=== PATIENT | male | born 1955 | race Caucasian/White ===

== ENCOUNTER 2016-02-21 12:25 | Day surgery (SDC) | payer OTHER ==
[2016-02-21 13:01] VITALS: RESP 20; TEMP 98.3
[2016-02-21 13:21] LABS: Mean Platelet Volume 7.5
[2016-02-21 13:22] LABS: INR 1.2 (<1.1); Prothrombin Time 12.3 sec (9.0-12.0)
[2016-02-21 13:24] LABS: Non-African American GFR(MDRD) >60 (>60 ml/min/1.73 sqM)
[2016-02-21] MEDS: ALBUMIN HUMAN 25% 50 ML in EMPTY BAG 1 BAG IVPB SCH ×3 (14:32→15:02)
[2016-02-21 16:05] VITALS: BP 116/68; PULSE 80
--- NOTE | 2016-02-21 16:39 | US ---
EXAMINATION TYPE: US paracentesis abd w/image DATE OF EXAM: 02/21/2016 4:16 PM COMPARISON: NONE HISTORY: Ascites. PROCEDURE: Maximal barrier technique was utilized. The skin overlying a suitable pocket of fluid was localized with ultrasound and the overlying skin was prepped and draped. Ultrasound was utilized with sterile technique. Lidocaine was used for local anesthesia and a skin soren made with a scalpel. Catheter was advanced under direct ultrasound guidance into a suitable pocket of fluid and approximately 10.8 lite rs of yellow fluid were removed. Catheter was withdrawn and hemostasis achieved. There is no immedi ate complication; the patient is discharged in stable condition. IMPRESSION: STATUS POST ULTRASOUND GUIDED PARACENTESIS FOR PALLIATION OF ASCITES. THIS PROCEDURE WA S PERFORMED BY THE UNDERSIGNED.
== END 2016-02-21 14:15 | disposition home or self-care (01) ==
LOC: RADPROMAIN 12:25
PROVIDERS: ATTEND Internal Medicine
DX: R18.8 Other ascites (principal); B18.2 Chronic viral hepatitis C; Z91.041 Radiographic dye allergy status; Z79.891 Long term (current) use of opiate analgesic; Z79.899 Other long term (current) drug therapy
CPT/HCPCS: 82565; 85049; 85610; 96365; 36415; 49083; P9047

== ENCOUNTER 2016-03-01 08:33 | Day surgery (SDC) | payer OTHER ==
[2016-03-01 09:01] LABS: Mean Platelet Volume 7.5
[2016-03-01 09:06] VITALS: TEMP 98.5
[2016-03-01 09:09] LABS: Non-African American GFR(MDRD) >60 (>60 ml/min/1.73 sqM)
[2016-03-01 09:27] LABS: INR 1.2 (<1.1); Prothrombin Time 11.9 sec (9.0-12.0)
[2016-03-01 10:03] VITALS: RESP 16
[2016-03-01] MEDS: ALBUMIN HUMAN 25% 50 ML in EMPTY BAG 1 BAG IVPB SCH ×4 (10:33→11:14)
[2016-03-01 11:21] VITALS: BP 121/74; PULSE 74
--- NOTE | 2016-03-01 13:20 | US ---
EXAMINATION TYPE: US paracentesis abd w/image DATE OF EXAM: 03/01/2016 12:42 PM COMPARISON: NONE HISTORY: Ascites. PROCEDURE: Maximal barrier technique was utilized. The skin overlying a suitable pocket of fluid was localized with ultrasound and the overlying skin was prepped and draped. Ultrasound was utilized with sterile technique. Lidocaine was used for local anesthesia and a skin soren made with a scalpel. Catheter was advanced under direct ultrasound guidance into a suitable pocket of fluid and approximately 9.8 liter s of straw-colored fluid were removed. Catheter was withdrawn and hemostasis achieved. There is no immediate complication; the patient is discharged in stable condition. IMPRESSION: STATUS POST ULTRASOUND GUIDED PARACENTESIS FOR PALLIATION OF ASCITES. THIS PROCEDURE WA S PERFORMED BY THE UNDERSIGNED.
== END 2016-03-01 11:50 | disposition home or self-care (01) ==
LOC: RADPROMAIN 08:33
DX: R18.8 Other ascites (principal)
CPT/HCPCS: 82565; 85049; 85610; 96365; 36415; 49083; P9047

== ENCOUNTER 2016-03-06 08:09 | Day surgery (SDC) | payer OTHER ==
[2016-03-06 08:31] VITALS: RESP 20; TEMP 97.8
[2016-03-06 08:36] LABS: Mean Platelet Volume 7.2
[2016-03-06 08:43] LABS: INR 1.1 (<1.1); Prothrombin Time 11.4 sec (9.0-12.0)
[2016-03-06 08:47] LABS: Non-African American GFR(MDRD) >60 (>60 ml/min/1.73 sqM)
[2016-03-06] MEDS: ALBUMIN HUMAN 25% 50 ML in EMPTY BAG 1 BAG IVPB SCH ×4 (10:22→11:13)
[2016-03-06 11:12] VITALS: BP 115/69; PULSE 70
--- NOTE | 2016-03-06 12:45 | US ---
EXAMINATION TYPE: US paracentesis abd w/image DATE OF EXAM: 03/06/2016 11:10 AM CLINICAL HISTORY: Ascites The procedure was discussed with the patient. The risks, complications, benefits, and alternatives we re discussed and any questions were answered. Informed consent was obtained. The patient was placed s upine on the ultrasound table and prepped and draped in the usual sterile fashion. All elements of maximal barrier technique were utilized. Under ultrasound guidance, access into the right lower quadrant was obtained, via the paracentesis catheter system and direct ultrasound guidanc e. Approximately 6.4 liters of straw-colored fluid was removed. The patient was stable throughout the pr ocedure and remained stable upon discharge from Department of Radiology. IMPRESSION: Successful therapeutic paracentesis under ultrasound guidance.
== END 2016-03-06 11:30 | disposition home or self-care (01) ==
LOC: RADPROMAIN 08:09
PROVIDERS: ATTEND Internal Medicine Gastroenterology
DX: R18.8 Other ascites (principal); K74.60 Unspecified cirrhosis of liver; B18.2 Chronic viral hepatitis C; F17.200 Nicotine dependence, unspecified, uncomplicated; Z79.899 Other long term (current) drug therapy
CPT/HCPCS: 82565; 85049; 85610; 96365; 36415; 49083; P9047

== ENCOUNTER 2016-03-16 10:38 | Day surgery (SDC) | payer OTHER ==
[~2016-03-16 10:38] MED LIST: SODIUM BICARB 4% 5 ML VIAL (0.48 MEQ/ML) MISCELLANE PRN
[2016-03-16 11:24] LABS: Mean Platelet Volume 6.8
[2016-03-16 11:29] VITALS: RESP 14; TEMP 98
[2016-03-16 11:30] LABS: INR 1.3 (<1.1); Prothrombin Time 12.4 sec (9.0-12.0)
[2016-03-16 11:38] LABS: Non-African American GFR(MDRD) >60 (>60 ml/min/1.73 sqM)
[2016-03-16] MEDS: ALBUMIN HUMAN 25% 50 ML in EMPTY BAG 1 BAG IVPB SCH ×4 (12:28→13:37)
[2016-03-16 13:36] VITALS: BP 118/71; PULSE 76
--- NOTE | 2016-03-17 12:58 | US ---
Therapeutic paracentesis. CLINICAL HISTORY: Ascites The procedure was discussed with the patient. The risks, complications, benefits, and alternatives we re discussed and any questions were answered. Informed consent was obtained. The patient was placed s upine on the ultrasound table and prepped and draped in the usual sterile fashion. All elements of maximal barrier technique were utilized. Under ultrasound guidance, access into the right lower quadrant was obtained, via the paracentesis catheter system and direct ultrasound guidanc e. Approximately 7.8 liters of straw-colored fluid was removed. The patient was stable throughout the pr ocedure and remained stable upon discharge from Department of Radiology. IMPRESSION: Successful therapeutic paracentesis under ultrasound guidance.
== END 2016-03-16 14:00 | disposition home or self-care (01) ==
LOC: RADPROMAIN 10:38
PROVIDERS: ATTEND Internal Medicine Gastroenterology
DX: R18.8 Other ascites (principal); K74.60 Unspecified cirrhosis of liver; B18.2 Chronic viral hepatitis C; Z79.891 Long term (current) use of opiate analgesic; Z79.899 Other long term (current) drug therapy; F17.200 Nicotine dependence, unspecified, uncomplicated; Z91.041 Radiographic dye allergy status
CPT/HCPCS: 82565; 85049; 85610; 96365; 49083; P9047

== ENCOUNTER 2016-03-23 12:11 | Day surgery (SDC) | payer OTHER ==
[2016-03-23 12:51] LABS: Non-African American GFR(MDRD) >60 (>60 ml/min/1.73 sqM)
[2016-03-23 12:53] LABS: Mean Platelet Volume 6.8
[2016-03-23 12:54] LABS: INR 1.2 (<1.1); Prothrombin Time 11.7 sec (9.0-12.0)
[2016-03-23 13:13] VITALS: TEMP 97.9
[2016-03-23] MEDS: ALBUMIN HUMAN 25% 50 ML in EMPTY BAG 1 BAG IVPB SCH ×3 (13:44→14:44)
[2016-03-23 14:25] VITALS: RESP 16
--- NOTE | 2016-03-23 15:20 | US ---
EXAMINATION TYPE: US paracentesis abd w/image DATE OF EXAM: 03/23/2016 3:12 PM CLINICAL HISTORY: Ascites The procedure was discussed with the patient. The risks, complications, benefits, and alternatives we re discussed and any questions were answered. Informed consent was obtained. The patient was placed s upine on the ultrasound table and prepped and draped in the usual sterile fashion. All elements of maximal barrier technique were utilized. Under ultrasound guidance, access into the right lower quadrant was obtained, via the paracentesis catheter system and direct ultrasound guidanc e. Approximately 9 liters of straw-colored fluid was removed. The patient was stable throughout the proc edure and remained stable upon discharge from Department of Radiology. IMPRESSION: Successful therapeutic paracentesis under ultrasound guidance.
[2016-03-23 16:11] VITALS: BP 123/68; PULSE 72
== END 2016-03-23 15:45 | disposition home or self-care (01) ==
LOC: RADPROMAIN 12:11
PROVIDERS: ATTEND Internal Medicine Gastroenterology
DX: K74.3 Primary biliary cirrhosis (principal); R18.8 Other ascites
CPT/HCPCS: 82565; 85049; 85610; 96365; 36415; 49083; P9047; 76700

== ENCOUNTER 2016-03-30 10:53 | Day surgery (SDC) | payer OTHER ==
--- NOTE | 2016-03-24 07:44 | US ---
EXAMINATION TYPE: US abdomen complete DATE OF EXAM: 03/23/2016 2:02 PM COMPARISON: NONE CLINICAL HISTORY: K74.3 PRIMARY BILIARY CIRRHOSIS. EXAM MEASUREMENTS: Liver Length: 11.3 cm Gallbladder Wall: 0.7 cm CBD: 0.25 cm Spleen: 16.45 cm Right Kidney: 10 cm Left Kidney: 9.1 cm TECHNOLOGIST IMPRESSION: None provided Pancreas: wnl Liver: wnl Gallbladder: Gallbladder wall is grossly thickened. Evidence for sonographic Chi's sign: CBD: wnl Spleen: Splenomegaly Right Kidney: wnl Left Kidney: wnl Upper IVC: wnl Abd Aorta: wnl There is ascites present. IMPRESSION: 1. Ascites. 2. Splenomegaly. 3. Gross thickening of the bladder wall may reflect acalculous cholecystitis.
[~2016-03-30 10:53] MED LIST changes: +ALPRAZolam 0.5 MG TAB PO ONE
[2016-03-30 12:56] VITALS: RESP 20; TEMP 97.7
[2016-03-30 13:01] LABS: Mean Platelet Volume 7.3
[2016-03-30 13:09] LABS: Non-African American GFR(MDRD) >60 (>60 ml/min/1.73 sqM)
[2016-03-30 13:12] LABS: INR 1.1 (<1.1); Prothrombin Time 11.1 sec (9.0-12.0)
[2016-03-30] MEDS: ALBUMIN HUMAN 25% 50 ML in EMPTY BAG 1 BAG IVPB SCH ×4 (14:03→14:58)
[2016-03-30 14:59] VITALS: BP 109/70; PULSE 70
--- NOTE | 2016-03-30 21:51 | US ---
Therapeutic paracentesis. CLINICAL HISTORY: Ascites The procedure was discussed with the patient. The risks, complications, benefits, and alternatives we re discussed and any questions were answered. Informed consent was obtained. The patient was placed s upine on the ultrasound table and prepped and draped in the usual sterile fashion. All elements of maximal barrier technique were utilized. Under ultrasound guidance, access into the right lower quadrant was obtained, via the paracentesis catheter system and direct ultrasound guidanc e. Approximately 4.6 liters of straw-colored fluid was removed. The patient was stable throughout the pr ocedure and remained stable upon discharge from Department of Radiology. IMPRESSION: Successful therapeutic paracentesis under ultrasound guidance.
== END 2016-03-30 13:10 | disposition home or self-care (01) ==
LOC: RADPROMAIN 10:53
PROVIDERS: ATTEND Internal Medicine Gastroenterology
DX: R18.8 Other ascites (principal); K74.3 Primary biliary cirrhosis; R16.1 Splenomegaly, not elsewhere classified
CPT/HCPCS: 82565; 85049; 85610; 96365; 36415; 76700; 49083; P9047

== ENCOUNTER 2016-04-07 09:01 | Day surgery (SDC) | payer OTHER ==
[2016-04-07 09:43] VITALS: TEMP 97.7
[2016-04-07 09:45] LABS: Mean Platelet Volume 6.6
[2016-04-07 09:50] LABS: INR 1.2 (<1.1); Non-African American GFR(MDRD) >60 (>60 ml/min/1.73 sqM); Prothrombin Time 12.3 sec (9.0-12.0)
[2016-04-07 10:43] VITALS: RESP 16
[2016-04-07] MEDS: ALBUMIN HUMAN 25% 50 ML in EMPTY BAG 1 BAG IVPB SCH ×3 (10:54→11:25)
[2016-04-07 11:43] VITALS: BP 119/69; PULSE 81
--- NOTE | 2016-04-07 14:48 | US ---
EXAMINATION TYPE: US paracentesis abd w/image DATE OF EXAM: 04/07/2016 12:09 PM COMPARISON: NONE HISTORY: Ascites. PROCEDURE: Maximal barrier technique was utilized. The skin overlying a suitable pocket of fluid was localized with ultrasound and the overlying skin was prepped and draped. Ultrasound was utilized with sterile technique. Lidocaine was used for local anesthesia and a skin soren made with a scalpel. Catheter was advanced under direct ultrasound guidance into a suitable pocket of fluid and approximately 9 liters of serous fluid were removed. Catheter was withdrawn and hemostasis achieved. There is no immediate complication; the patient is discharged in stable condition. IMPRESSION: STATUS POST ULTRASOUND GUIDED PARACENTESIS FOR PALLIATION OF ASCITES. THIS PROCEDURE WA S PERFORMED BY THE UNDERSIGNED.
== END 2016-04-07 12:00 | disposition home or self-care (01) ==
LOC: RADPROMAIN 09:01
PROVIDERS: ATTEND Internal Medicine Gastroenterology
DX: R18.8 Other ascites (principal); K74.3 Primary biliary cirrhosis
CPT/HCPCS: 82565; 85049; 85610; 96365; 36415; 49083; P9047

== ENCOUNTER 2016-04-13 12:14 | Day surgery (SDC) | payer OTHER ==
[2016-04-13 12:48] VITALS: TEMP 97.7
[2016-04-13 12:50] LABS: Mean Platelet Volume 7.7
[2016-04-13 12:51] LABS: INR 1.3 (<1.1); Prothrombin Time 12.7 sec (9.0-12.0)
[2016-04-13 12:55] LABS: Non-African American GFR(MDRD) >60 (>60 ml/min/1.73 sqM)
[2016-04-13] MEDS: ALBUMIN HUMAN 25% 50 ML in EMPTY BAG 1 BAG IVPB SCH ×4 (14:17→15:05)
[2016-04-13 14:32] VITALS: RESP 16
[2016-04-13 15:01] VITALS: BP 117/67; PULSE 70
--- NOTE | 2016-04-13 15:45 | US ---
EXAMINATION TYPE: US paracentesis abd w/image DATE OF EXAM: 04/13/2016 2:53 PM COMPARISON: NONE HISTORY: Ascites. PROCEDURE: Maximal barrier technique was utilized. The skin overlying a suitable pocket of fluid was localized with ultrasound and the overlying skin was prepped and draped. Ultrasound was utilized with sterile technique. Lidocaine was used for local anesthesia and a skin soren made with a scalpel. Catheter was advanced under direct ultrasound guidance into a suitable pocket of fluid and approximately 8.4 liter s of serous fluid were removed. Catheter was withdrawn and hemostasis achieved. There is no immedia te complication; the patient is discharged in stable condition. IMPRESSION: STATUS POST ULTRASOUND GUIDED PARACENTESIS FOR PALLIATION OF ASCITES. THIS PROCEDURE WA S PERFORMED BY THE UNDERSIGNED.
== END 2016-04-13 15:50 | disposition home or self-care (01) ==
LOC: RADPROMAIN 12:14
PROVIDERS: ATTEND Internal Medicine Gastroenterology
DX: K74.3 Primary biliary cirrhosis (principal); R18.8 Other ascites
CPT/HCPCS: 82565; 85049; 85610; 96365; 36415; 49083; P9047

== ENCOUNTER 2016-04-20 12:18 | Day surgery (SDC) | payer OTHER ==
[~2016-04-20 12:18] MED LIST changes: -ALPRAZolam 0.5 MG TAB PO ONE
[2016-04-20 12:47] LABS: Mean Platelet Volume 6.7
[2016-04-20 12:54] LABS: Non-African American GFR(MDRD) >60 (>60 ml/min/1.73 sqM)
[2016-04-20 13:05] LABS: INR 1.2 (<1.1); Prothrombin Time 12.3 sec (9.0-12.0)
[2016-04-20] MEDS: ALBUMIN HUMAN 25% 50 ML in EMPTY BAG 1 BAG IVPB SCH ×4 (14:07→15:00)
--- NOTE | 2016-04-20 15:46 | US ---
Therapeutic paracentesis. CLINICAL HISTORY: Ascites The procedure was discussed with the patient. The risks, complications, benefits, and alternatives we re discussed and any questions were answered. Informed consent was obtained. The patient was placed s upine on the ultrasound table and prepped and draped in the usual sterile fashion. All elements of maximal barrier technique were utilized. Under ultrasound guidance, access into the right lower quadrant was obtained, via the paracentesis catheter system and direct ultrasound guidanc e. Approximately 8.8 liters of straw-colored fluid was removed. The patient was stable throughout the pr ocedure and remained stable upon discharge from Department of Radiology. IMPRESSION: Successful therapeutic paracentesis under ultrasound guidance.
[2016-04-20 16:34] VITALS: BP 121/60; PULSE 80; RESP 14
== END 2016-04-20 16:20 | disposition home or self-care (01) ==
LOC: RADPROMAIN 12:18
PROVIDERS: ATTEND Internal Medicine Gastroenterology
DX: R18.8 Other ascites (principal)
CPT/HCPCS: 49083; 82565; 85049; 85610; 96365; 36415; P9047

== ENCOUNTER 2016-04-27 09:14 | Day surgery (SDC) | payer OTHER ==
[2016-04-27 09:44] VITALS: RESP 14; TEMP 98
[2016-04-27 09:45] LABS: Mean Platelet Volume 7.2
[2016-04-27 09:53] LABS: Non-African American GFR(MDRD) >60 (>60 ml/min/1.73 sqM)
[2016-04-27 09:55] LABS: INR 1.2 (<1.1); Prothrombin Time 12.1 sec (9.0-12.0)
[2016-04-27 11:49] VITALS: BP 121/72; PULSE 66
--- NOTE | 2016-04-27 15:24 | US ---
EXAMINATION TYPE: US paracentesis abd w/image DATE OF EXAM: 04/27/2016 12:28 PM CLINICAL HISTORY: Ascites The procedure was discussed with the patient. The risks, complications, benefits, and alternatives we re discussed and any questions were answered. Informed consent was obtained. The patient was placed s upine on the ultrasound table and prepped and draped in the usual sterile fashion. All elements of maximal barrier technique were utilized. Under ultrasound guidance, access into the right lower quadrant was obtained, via the paracentesis catheter system and direct ultrasound guidanc e. Approximately 7.3 liters of straw-colored fluid was removed. The patient was stable throughout the pr ocedure and remained stable upon discharge from Department of Radiology. IMPRESSION: Successful therapeutic paracentesis under ultrasound guidance.
== END 2016-04-27 12:00 | disposition home or self-care (01) ==
LOC: RADPROMAIN 09:14
PROVIDERS: ATTEND Internal Medicine Gastroenterology
DX: R18.8 Other ascites (principal); K74.60 Unspecified cirrhosis of liver
CPT/HCPCS: 49083; 82565; 85049; 85610

== ENCOUNTER 2016-05-04 12:20 | Day surgery (SDC) | payer OTHER ==
[2016-05-04 12:57] LABS: Mean Platelet Volume 7.8
[2016-05-04 13:02] LABS: Non-African American GFR(MDRD) >60 (>60 ml/min/1.73 sqM)
[2016-05-04 13:08] VITALS: TEMP 97.4
[2016-05-04 13:12] LABS: INR 1.2 (<1.1)
[2016-05-04 13:13] LABS: Prothrombin Time 12.1 sec (9.0-12.0)
[2016-05-04] MEDS: ALBUMIN HUMAN 25% 50 ML in EMPTY BAG 1 BAG IVPB SCH ×3 (13:37→14:09)
[2016-05-04 14:19] VITALS: RESP 16
--- NOTE | 2016-05-04 14:48 | US ---
EXAMINATION TYPE: US paracentesis abd w/image DATE OF EXAM: 05/04/2016 2:34 PM COMPARISON: NONE HISTORY: Ascites. PROCEDURE: Maximal barrier technique was utilized. The skin overlying a suitable pocket of fluid was localized with ultrasound and the overlying skin was prepped and draped. Ultrasound was utilized with sterile technique. Lidocaine was used for local anesthesia and a skin soren made with a scalpel. Catheter was advanced under direct ultrasound guidance into a suitable pocket of fluid and approximately 8.2 liter s of serous fluid were removed. Catheter was withdrawn and hemostasis achieved. There is no immedia te complication; the patient is discharged in stable condition. IMPRESSION: STATUS POST ULTRASOUND GUIDED PARACENTESIS FOR PALLIATION OF ASCITES. THIS PROCEDURE WA S PERFORMED BY THE UNDERSIGNED.
[2016-05-04 15:28] VITALS: BP 119/71; PULSE 70
== END 2016-05-04 15:30 | disposition home or self-care (01) ==
LOC: RADPROMAIN 12:20
PROVIDERS: ATTEND Internal Medicine Gastroenterology
DX: R18.8 Other ascites (principal); K74.60 Unspecified cirrhosis of liver
CPT/HCPCS: 82565; 85049; 85610; 96365; 49083; P9047

== ENCOUNTER 2016-05-11 12:26 | Day surgery (SDC) | payer OTHER ==
[2016-05-11 12:58] VITALS: RESP 14; TEMP 98.1
[2016-05-11 12:58] LABS: Mean Platelet Volume 7.5
[2016-05-11 13:00] LABS: INR 1.2 (<1.1)
[2016-05-11 13:06] LABS: Non-African American GFR(MDRD) >60 (>60 ml/min/1.73 sqM)
[2016-05-11] MEDS: ALBUMIN HUMAN 25% 50 ML in EMPTY BAG 1 BAG IVPB SCH ×5 (14:22→15:36)
[2016-05-11 15:43] VITALS: BP 126/66; PULSE 86
--- NOTE | 2016-05-12 07:48 | US ---
EXAMINATION TYPE: US paracentesis abd w/image DATE OF EXAM: 05/11/2016 3:33 PM CLINICAL HISTORY: Ascites The procedure was discussed with the patient. The risks, complications, benefits, and alternatives we re discussed and any questions were answered. Informed consent was obtained. The patient was placed s upine on the ultrasound table and prepped and draped in the usual sterile fashion. All elements of maximal barrier technique were utilized. Under ultrasound guidance, access into the right lower quadrant was obtained, via the paracentesis catheter system and direct ultrasound guidanc e. Approximately 7.7 liters of straw-colored fluid was removed. The patient was stable throughout the pr ocedure and remained stable upon discharge from Department of Radiology. IMPRESSION: Successful therapeutic paracentesis under ultrasound guidance.
== END 2016-05-11 16:09 | disposition home or self-care (01) ==
LOC: RADPROMAIN 12:26
PROVIDERS: ATTEND Internal Medicine Gastroenterology
DX: K74.60 Unspecified cirrhosis of liver (principal); R18.8 Other ascites
CPT/HCPCS: 82565; 85049; 85610; 96365; 49083; P9047

== ENCOUNTER 2016-05-26 11:34 | Day surgery (SDC) | payer OTHER ==
[2016-05-26 13:08] LABS: Mean Platelet Volume 7.2
[2016-05-26 13:14] LABS: Non-African American GFR(MDRD) >60 (>60 ml/min/1.73 sqM)
[2016-05-26 13:16] LABS: INR 1.3 (<1.1); Prothrombin Time 12.6 sec (9.0-12.0)
[2016-05-26 13:26] VITALS: TEMP 97.9
[2016-05-26] MEDS: ALBUMIN HUMAN 25% 50 ML in EMPTY BAG 1 BAG IVPB SCH ×4 (14:13→16:05)
[2016-05-26 16:07] VITALS: BP 121/70; PULSE 84; RESP 16
--- NOTE | 2016-05-26 16:12 | US ---
EXAMINATION TYPE: US paracentesis abd w/image DATE OF EXAM: 05/26/2016 3:08 PM COMPARISON: NONE HISTORY: Ascites. PROCEDURE: Maximal barrier technique was utilized. The skin overlying a suitable pocket of fluid was localized with ultrasound and the overlying skin was prepped and draped. Ultrasound was utilized with sterile technique. Lidocaine was used for local anesthesia and a skin soren made with a scalpel. Catheter was advanced under direct ultrasound guidance into a suitable pocket of fluid and approximately 6.5 liter s of serous fluid were removed. Catheter was withdrawn and hemostasis achieved. There is no immedia te complication; the patient is discharged in stable condition. IMPRESSION: STATUS POST ULTRASOUND GUIDED PARACENTESIS FOR PALLIATION OF ASCITES. THIS PROCEDURE WA S PERFORMED BY THE UNDERSIGNED.
== END 2016-05-26 15:30 | disposition home or self-care (01) ==
LOC: RADPROMAIN 11:34
PROVIDERS: ATTEND Internal Medicine Gastroenterology
DX: R18.8 Other ascites (principal); K74.60 Unspecified cirrhosis of liver
CPT/HCPCS: 82565; 85049; 85610; 96365; 36415; 49083; P9047

== ENCOUNTER 2016-06-01 11:53 | Day surgery (SDC) | payer OTHER ==
[2016-06-01 12:48] VITALS: RESP 14; TEMP 98.2
[2016-06-01 12:56] LABS: INR 1.3 (<1.1); Prothrombin Time 12.9 sec (9.0-12.0)
[2016-06-01 13:00] LABS: Non-African American GFR(MDRD) >60 (>60 ml/min/1.73 sqM)
[2016-06-01] MEDS: ALBUMIN HUMAN 25% 50 ML in EMPTY BAG 1 BAG IVPB SCH ×3 (13:39→15:09)
[2016-06-01 14:23] VITALS: PULSE 70
[2016-06-01 14:38] VITALS: BP 121/67
--- NOTE | 2016-06-01 16:01 | US ---
EXAMINATION TYPE: US paracentesis abd w/image DATE OF EXAM: 06/01/2016 2:34 PM COMPARISON: NONE HISTORY: Ascites. PROCEDURE: Maximal barrier technique was utilized. The skin overlying a suitable pocket of fluid was localized with ultrasound and the overlying skin was prepped and draped. Ultrasound was utilized with sterile technique. Lidocaine was used for local anesthesia and a skin soren made with a scalpel. Catheter was advanced under direct ultrasound guidance into a suitable pocket of fluid and approximately 5.1 liter s of serous fluid were removed. Catheter was withdrawn and hemostasis achieved. There is no immedia te complication; the patient is discharged in stable condition. IMPRESSION: STATUS POST ULTRASOUND GUIDED PARACENTESIS FOR PALLIATION OF ASCITES. THIS PROCEDURE WA S PERFORMED BY THE UNDERSIGNED.
== END 2016-06-01 14:55 | disposition home or self-care (01) ==
LOC: RADPROMAIN 11:53
PROVIDERS: ATTEND Internal Medicine Gastroenterology
DX: R18.8 Other ascites (principal)
CPT/HCPCS: 82565; 85049; 85610; 96365; 49083; P9047

== ENCOUNTER 2016-06-08 11:53 | Day surgery (SDC) | payer OTHER ==
[2016-06-08 12:25] VITALS: RESP 20; TEMP 97.9
[2016-06-08 12:53] LABS: Non-African American GFR(MDRD) >60 (>60 ml/min/1.73 sqM)
[2016-06-08 12:55] LABS: INR 1.2 (<1.1); Prothrombin Time 11.7 sec (9.0-12.0)
[2016-06-08] MEDS: ALBUMIN HUMAN 25% 50 ML in EMPTY BAG 1 BAG IVPB SCH ×4 (14:02→14:46)
[2016-06-08 14:46] VITALS: BP 105/59; PULSE 74
--- NOTE | 2016-06-08 16:36 | US ---
Therapeutic paracentesis. CLINICAL HISTORY: Ascites The procedure was discussed with the patient. The risks, complications, benefits, and alternatives we re discussed and any questions were answered. Informed consent was obtained. The patient was placed s upine on the ultrasound table and prepped and draped in the usual sterile fashion. All elements of maximal barrier technique were utilized. Under ultrasound guidance, access into the left lower quadrant was obtained, via the paracentesis catheter system and direct ultrasound guidance . Approximately 6.75 liters of straw-colored fluid was removed. The patient was stable throughout the p rocedure and remained stable upon discharge from Department of Radiology. IMPRESSION: Successful therapeutic paracentesis under ultrasound guidance.
== END 2016-06-08 15:00 | disposition home or self-care (01) ==
LOC: RADPROMAIN 11:53
PROVIDERS: ATTEND Internal Medicine Gastroenterology
DX: R18.8 Other ascites (principal); K74.60 Unspecified cirrhosis of liver
CPT/HCPCS: 82565; 85049; 85610; 96365; 36415; 49083; P9047

== ENCOUNTER 2016-06-15 08:37 | Day surgery (SDC) | payer OTHER ==
[2016-06-15 09:08] VITALS: RESP 20; TEMP 98.1
[2016-06-15 09:29] LABS: Non-African American GFR(MDRD) >60 (>60 ml/min/1.73 sqM)
[2016-06-15 09:30] LABS: INR 1.2 (<1.1); Prothrombin Time 12.1 sec (9.0-12.0)
[2016-06-15] MEDS: ALBUMIN HUMAN 25% 50 ML in EMPTY BAG 1 BAG IVPB SCH ×4 (10:43→11:57)
[2016-06-15 12:15] VITALS: BP 117/67; PULSE 71
--- NOTE | 2016-06-15 13:05 | US ---
Therapeutic paracentesis. CLINICAL HISTORY: Ascites The procedure was discussed with the patient. The risks, complications, benefits, and alternatives we re discussed and any questions were answered. Informed consent was obtained. The patient was placed s upine on the ultrasound table and prepped and draped in the usual sterile fashion. All elements of maximal barrier technique were utilized. Under ultrasound guidance, access into the right lower quadrant was obtained, via the paracentesis catheter system and direct ultrasound guidanc e. Approximately 6.7 liters of straw-colored fluid was removed. The patient was stable throughout the pr ocedure and remained stable upon discharge from Department of Radiology. IMPRESSION: Successful therapeutic paracentesis under ultrasound guidance.
[2016-06-15 13:26] LABS: Basophils % (A) 0 %; CH 33.8; Eosinophils # (A) 0.1 k/uL (0-0.7); Eosinophils % (A) 2 %; HCT 42.3 % (39.0-53.0); HDW 2.51; HGB 13.6 gm/dL (13.0-17.5); Luc # (Auto) 0.12; Luc % (Auto) 2; Lymphocytes # (A) 0.8 k/uL (1.0-4.8); Lymphocytes % (A) 11 %; MCH 33.2 pg (25.0-35.0); MCHC 32.2 g/dL (31.0-37.0); MCV 103.2 fL (80.0-100.0); Macrocytosis Moderate; Mean Platelet Volume 7.1; Monocytes # (A) 0.5 k/uL (0-1.0); Monocytes % (A) 7 %; Neutrophils # (A) 5.6 k/uL (1.3-7.7); Neutrophils % (A) 78 %; RBC 4.09 m/uL (4.30-5.90); RDW 15.2 % (11.5-15.5); WBC 7.1 k/uL (3.8-10.6); WBC (Perox) 7.64
[2016-06-15 13:41] LABS: ALT 31 U/L (21-72); AST 33 U/L (17-59); Alkaline Phosphatase 120 U/L (38-126); Bilirubin, Delta 0.8 mg/dL (0.0-0.2); Total Protein 6.6 g/dL (6.3-8.2)
== END 2016-06-15 12:30 | disposition home or self-care (01) ==
LOC: RADPROMAIN 08:37
PROVIDERS: ATTEND Internal Medicine Gastroenterology
DX: R18.8 Other ascites (principal); K74.60 Unspecified cirrhosis of liver
CPT/HCPCS: 80076; 82565; 85025; 85610; 82105; 96365; 36415; 49083; P9047; 85049

== ENCOUNTER 2016-06-21 11:43 | Day surgery (SDC) | payer OTHER ==
[2016-06-21 12:50] VITALS: RESP 14; TEMP 98.1
[2016-06-21 12:53] LABS: Mean Platelet Volume 7.3
[2016-06-21 12:55] LABS: Non-African American GFR(MDRD) >60 (>60 ml/min/1.73 sqM)
[2016-06-21 13:14] LABS: INR 1.3 (<1.1); Prothrombin Time 12.6 sec (9.0-12.0)
[2016-06-21] MEDS: ALBUMIN HUMAN 25% 50 ML in EMPTY BAG 1 BAG IVPB SCH ×3 (13:55→15:28)
[2016-06-21 15:04] VITALS: BP 135/74; PULSE 74
--- NOTE | 2016-06-21 15:07 | US ---
EXAMINATION TYPE: US paracentesis abd w/image DATE OF EXAM: 06/21/2016 3:03 PM COMPARISON: NONE HISTORY: Ascites. PROCEDURE: Maximal barrier technique was utilized. The skin overlying a suitable pocket of fluid was localized with ultrasound and the overlying skin was prepped and draped. Ultrasound was utilized with sterile technique. Lidocaine was used for local anesthesia and a skin soren made with a scalpel. Catheter was advanced under direct ultrasound guidance into a suitable pocket of fluid and approximately 5 liters of serous fluid were removed. Catheter was withdrawn and hemostasis achieved. There is no immediate complication; the patient is discharged in stable condition. IMPRESSION: STATUS POST ULTRASOUND GUIDED PARACENTESIS FOR PALLIATION OF ASCITES. THIS PROCEDURE WA S PERFORMED BY THE UNDERSIGNED.
== END 2016-06-21 15:35 | disposition home or self-care (01) ==
LOC: RADPROMAIN 11:43
PROVIDERS: ATTEND Internal Medicine Gastroenterology
DX: R18.8 Other ascites (principal); K74.60 Unspecified cirrhosis of liver
CPT/HCPCS: 82565; 85049; 85610; 96365; 49083; P9047

== ENCOUNTER 2016-06-29 09:54 | Day surgery (SDC) | payer OTHER ==
[2016-06-29 10:31] VITALS: RESP 20; TEMP 98.1
[2016-06-29 10:43] LABS: Non-African American GFR(MDRD) >60 (>60 ml/min/1.73 sqM)
[2016-06-29 10:49] LABS: INR 1.2 (<1.1); Prothrombin Time 12.2 sec (9.0-12.0)
[2016-06-29] MEDS: ALBUMIN HUMAN 25% 50 ML in EMPTY BAG 1 BAG IVPB SCH ×4 (11:45→12:37)
[2016-06-29 12:24] VITALS: PULSE 58
[2016-06-29 12:38] VITALS: BP 106/68
--- NOTE | 2016-06-29 13:05 | US ---
Therapeutic paracentesis. CLINICAL HISTORY: Ascites The procedure was discussed with the patient. The risks, complications, benefits, and alternatives we re discussed and any questions were answered. Informed consent was obtained. The patient was placed s upine on the ultrasound table and prepped and draped in the usual sterile fashion. All elements of maximal barrier technique were utilized. Under ultrasound guidance, access into the right lower quadrant was obtained, via the paracentesis catheter system and direct ultrasound guidanc e. Approximately 6.6 liters of straw-colored fluid was removed. The patient was stable throughout the pr ocedure and remained stable upon discharge from Department of Radiology. IMPRESSION: Successful therapeutic paracentesis under ultrasound guidance.
== END 2016-06-29 12:50 | disposition home or self-care (01) ==
LOC: RADPROMAIN 09:54
PROVIDERS: ATTEND Internal Medicine Gastroenterology
DX: R18.8 Other ascites (principal)
CPT/HCPCS: 82565; 85049; 85610; 96365; 36415; 49083; P9047

== ENCOUNTER 2016-07-06 11:55 | Day surgery (SDC) | payer OTHER ==
[2016-07-06 12:42] LABS: Mean Platelet Volume 6.9
[2016-07-06 12:45] VITALS: TEMP 97.7
[2016-07-06 12:47] LABS: INR 1.2 (<1.1); Prothrombin Time 11.8 sec (9.0-12.0)
[2016-07-06 12:49] LABS: Non-African American GFR(MDRD) >60 (>60 ml/min/1.73 sqM)
[2016-07-06 13:32] VITALS: RESP 18
[2016-07-06] MEDS: ALBUMIN HUMAN 25% 50 ML in EMPTY BAG 1 BAG IVPB SCH ×3 (14:05→14:45)
--- NOTE | 2016-07-06 15:47 | US ---
EXAMINATION TYPE: US paracentesis abd w/image DATE OF EXAM: 07/06/2016 3:08 PM CLINICAL HISTORY: Ascites The procedure was discussed with the patient. The risks, complications, benefits, and alternatives we re discussed and any questions were answered. Informed consent was obtained. The patient was placed s upine on the ultrasound table and prepped and draped in the usual sterile fashion. All elements of maximal barrier technique were utilized. Under ultrasound guidance, access into the left lower quadrant was obtained, via the paracentesis catheter system and direct ultrasound guidance . Approximately 6.3 liters of straw-colored fluid was removed. The patient was stable throughout the pr ocedure and remained stable upon discharge from Department of Radiology. IMPRESSION: Successful therapeutic paracentesis under ultrasound guidance.
[2016-07-06 16:03] VITALS: BP 112/67; PULSE 66
== END 2016-07-06 15:30 | disposition home or self-care (01) ==
LOC: RADPROMAIN 11:55
PROVIDERS: ATTEND Internal Medicine Gastroenterology
DX: R18.8 Other ascites (principal); K74.60 Unspecified cirrhosis of liver
CPT/HCPCS: 82565; 85049; 85610; 96365; 36415; 49083; P9047

== ENCOUNTER 2016-07-13 12:08 | Day surgery (SDC) | payer OTHER ==
[2016-07-13 12:57] LABS: INR 1.3 (<1.1); Mean Platelet Volume 6.9; Prothrombin Time 12.9 sec (9.0-12.0)
[2016-07-13 13:01] LABS: Non-African American GFR(MDRD) >60 (>60 ml/min/1.73 sqM)
[2016-07-13 13:14] VITALS: TEMP 98
[2016-07-13 13:49] VITALS: RESP 16
[2016-07-13] MEDS: ALBUMIN HUMAN 25% 50 ML in EMPTY BAG 1 BAG IVPB SCH ×3 (14:05→14:37)
[2016-07-13 14:53] VITALS: BP 119/73; PULSE 78
--- NOTE | 2016-07-13 15:31 | US ---
EXAMINATION TYPE: US paracentesis abd w/image DATE OF EXAM: 07/13/2016 COMPARISON: None HISTORY: Ascites. PROCEDURE: Maximal barrier technique was utilized. The skin overlying a suitable pocket of fluid was localized with ultrasound and the overlying skin was prepped and draped. Ultrasound was utilized with sterile technique. Lidocaine was used for local anesthesia and a skin soren made with a scalpel. Catheter was advanced under direct ultrasound guidance into a suitable pocket of fluid and approximately 6.9 liter s of serous fluid were removed. Catheter was withdrawn and hemostasis achieved. There is no immedia te complication; the patient is discharged in stable condition. IMPRESSION: STATUS POST ULTRASOUND GUIDED PARACENTESIS FOR PALLIATION OF ASCITES. THIS PROCEDURE WA S PERFORMED BY THE UNDERSIGNED.
== END 2016-07-13 15:13 | disposition home or self-care (01) ==
LOC: RADPROMAIN 12:08
PROVIDERS: ATTEND Internal Medicine Gastroenterology
DX: R18.8 Other ascites (principal); K74.60 Unspecified cirrhosis of liver
CPT/HCPCS: 82565; 85049; 85610; 96365; 36415; 49083; P9047

== ENCOUNTER 2016-07-20 11:58 | Day surgery (SDC) | payer OTHER ==
[2016-07-20 13:08] LABS: Mean Platelet Volume 7.2
[2016-07-20 13:13] LABS: INR 1.3 (<1.1); Prothrombin Time 12.8 sec (9.0-12.0)
[2016-07-20 13:15] LABS: Non-African American GFR(MDRD) >60 (>60 ml/min/1.73 sqM)
[2016-07-20] MEDS: ALBUMIN HUMAN 25% 50 ML in EMPTY BAG 1 BAG IVPB SCH ×3 (13:50→14:21)
[2016-07-20 14:00] VITALS: RESP 18; TEMP 98
[2016-07-20 15:20] VITALS: BP 121/70; PULSE 78
--- NOTE | 2016-07-20 16:35 | US ---
EXAMINATION TYPE: US paracentesis abd w/image DATE OF EXAM: 07/20/2016 COMPARISON: NONE HISTORY: Ascites. PROCEDURE: Maximal barrier technique was utilized. The skin overlying a suitable pocket of fluid was localized with ultrasound and the overlying skin was prepped and draped. Ultrasound was utilized with sterile technique. Lidocaine was used for local anesthesia and a skin soren made with a scalpel. Catheter was advanced under direct ultrasound guidance into a suitable pocket of fluid and approximately 6.5 liter s of serous fluid were removed. Catheter was withdrawn and hemostasis achieved. There is no immedia te complication; the patient is discharged in stable condition. IMPRESSION: STATUS POST ULTRASOUND GUIDED PARACENTESIS FOR PALLIATION OF ASCITES. THIS PROCEDURE WA S PERFORMED BY THE UNDERSIGNED.
== END 2016-07-20 15:10 | disposition home or self-care (01) ==
LOC: RADPROMAIN 11:58
PROVIDERS: ATTEND Internal Medicine Gastroenterology
DX: R18.8 Other ascites (principal)
CPT/HCPCS: 82565; 85049; 85610; 96365; 49083; P9047

== ENCOUNTER 2016-07-27 12:40 | Day surgery (SDC) | payer OTHER ==
[2016-07-27 13:22] LABS: Non-African American GFR(MDRD) >60 (>60 ml/min/1.73 sqM)
[2016-07-27 13:26] LABS: INR 1.2 (<1.1); Prothrombin Time 11.9 sec (9.0-12.0)
[2016-07-27 13:30] VITALS: TEMP 97
[2016-07-27] MEDS: ALBUMIN HUMAN 25% 50 ML in EMPTY BAG 1 BAG IVPB SCH ×4 (14:30→16:03)
[2016-07-27 16:09] VITALS: BP 126/68; PULSE 80; RESP 18
--- NOTE | 2016-07-27 16:21 | US ---
EXAMINATION TYPE: US paracentesis abd w/image DATE OF EXAM: 07/27/2016 COMPARISON: NONE HISTORY: Ascites. PROCEDURE: Maximal barrier technique was utilized. The skin overlying a suitable pocket of fluid was localized with ultrasound and the overlying skin was prepped and draped. Ultrasound was utilized with sterile technique. Lidocaine was used for local anesthesia and a skin soren made with a scalpel. Catheter was advanced under direct ultrasound guidance into a suitable pocket of fluid and approximately 7.8 liter s of serous fluid were removed. Catheter was withdrawn and hemostasis achieved. There is no immedia te complication; the patient is discharged in stable condition. IMPRESSION: STATUS POST ULTRASOUND GUIDED PARACENTESIS FOR PALLIATION OF ASCITES. THIS PROCEDURE WA S PERFORMED BY THE UNDERSIGNED.
== END 2016-07-27 16:05 | disposition home or self-care (01) ==
LOC: RADPROMAIN 12:40
PROVIDERS: ATTEND Internal Medicine Gastroenterology
DX: R18.8 Other ascites (principal)
CPT/HCPCS: 82565; 85049; 85610; 96365; 36415; 49083; P9047

== ENCOUNTER 2016-08-03 09:05 | Day surgery (SDC) | payer OTHER ==
[2016-08-03 09:18] VITALS: RESP 16; TEMP 97.5
[2016-08-03 09:43] LABS: INR 1.2 (<1.1); Prothrombin Time 12.2 sec (9.0-12.0)
[2016-08-03 09:46] LABS: Non-African American GFR(MDRD) >60 (>60 ml/min/1.73 sqM)
[2016-08-03] MEDS: ALBUMIN HUMAN 25% 50 ML in EMPTY BAG 1 BAG IVPB SCH ×3 (10:43→11:10)
[2016-08-03 12:07] VITALS: BP 121/66; PULSE 69
--- NOTE | 2016-08-03 12:46 | US ---
Therapeutic paracentesis. DATE OF EXAM: 08/03/2016 CLINICAL HISTORY: Ascites The procedure was discussed with the patient. The risks, complications, benefits, and alternatives we re discussed and any questions were answered. Informed consent was obtained. The patient was placed s upine on the ultrasound table and prepped and draped in the usual sterile fashion. All elements of maximal barrier technique were utilized. Under ultrasound guidance, access into the right lower quadrant was obtained, via the paracentesis catheter system and direct ultrasound guidanc e. Approximately 7.5 liters of straw-colored fluid was removed. The patient was stable throughout the pr ocedure and remained stable upon discharge from Department of Radiology. IMPRESSION: Successful therapeutic paracentesis under ultrasound guidance.
== END 2016-08-03 11:48 | disposition home or self-care (01) ==
LOC: RADPROMAIN 09:05
PROVIDERS: ATTEND Internal Medicine Gastroenterology
DX: R18.8 Other ascites (principal)
CPT/HCPCS: 82565; 85049; 85610; 49083; P9047

== ENCOUNTER 2016-08-10 08:49 | Day surgery (SDC) | payer OTHER ==
[2016-08-10 09:32] LABS: Mean Platelet Volume 7.1
[2016-08-10 09:39] LABS: Non-African American GFR(MDRD) >60 (>60 ml/min/1.73 sqM)
[2016-08-10 09:42] LABS: INR 1.2 (<1.1); Prothrombin Time 11.6 sec (9.0-12.0)
[2016-08-10 10:19] VITALS: TEMP 97.6
[2016-08-10] MEDS: ALBUMIN HUMAN 25% 50 ML in EMPTY BAG 1 BAG IVPB SCH ×3 (11:07→11:53)
--- NOTE | 2016-08-10 12:25 | US ---
EXAMINATION TYPE: US paracentesis abd w/image DATE OF EXAM: 08/10/2016 COMPARISON: NONE HISTORY: Ascites. PROCEDURE: Maximal barrier technique was utilized. The skin overlying a suitable pocket of fluid was localized with ultrasound and the overlying skin was prepped and draped. Ultrasound was utilized with sterile technique. Lidocaine was used for local anesthesia and a skin soren made with a scalpel. Catheter was advanced under direct ultrasound guidance into a suitable pocket of fluid and approximately 7.5 liter s of serous fluid were removed. Catheter was withdrawn and hemostasis achieved. There is no immedia te complication; the patient is discharged in stable condition. IMPRESSION: STATUS POST ULTRASOUND GUIDED PARACENTESIS FOR PALLIATION OF ASCITES. THIS PROCEDURE WA S PERFORMED BY THE UNDERSIGNED.
[2016-08-10 14:40] VITALS: BP 110/70; PULSE 72; RESP 18
== END 2016-08-10 12:45 | disposition home or self-care (01) ==
LOC: RADPROMAIN 08:49
PROVIDERS: ATTEND Internal Medicine Gastroenterology
DX: R18.8 Other ascites (principal)
CPT/HCPCS: 82565; 85049; 85610; 96365; 36415; 49083; P9047

== ENCOUNTER 2016-08-17 11:53 | Day surgery (SDC) | payer OTHER ==
[2016-08-17 12:26] LABS: Mean Platelet Volume 6.8
[2016-08-17 12:33] LABS: Non-African American GFR(MDRD) >60 (>60 ml/min/1.73 sqM)
[2016-08-17 12:34] LABS: INR 1.2 (<1.1); Prothrombin Time 12.1 sec (9.0-12.0)
[2016-08-17 12:38] VITALS: TEMP 97.4
[2016-08-17] MEDS: ALBUMIN HUMAN 25% 50 ML in EMPTY BAG 1 BAG IVPB SCH ×4 (13:24→15:16)
--- NOTE | 2016-08-17 14:48 | US ---
Therapeutic paracentesis. DATE OF EXAM: 08/17/2016 CLINICAL HISTORY: Ascites The procedure was discussed with the patient. The risks, complications, benefits, and alternatives we re discussed and any questions were answered. Informed consent was obtained. The patient was placed s upine on the ultrasound table and prepped and draped in the usual sterile fashion. All elements of maximal barrier technique were utilized. Under ultrasound guidance, access into the left lower quadrant was obtained, via the paracentesis catheter system and direct ultrasound guidance . Approximately 6.8 liters of straw-colored fluid was removed. The patient was stable throughout the pr ocedure and remained stable upon discharge from Department of Radiology. IMPRESSION: Successful therapeutic paracentesis under ultrasound guidance.
[2016-08-17 15:15] VITALS: BP 121/70; PULSE 68; RESP 16
== END 2016-08-17 14:45 | disposition home or self-care (01) ==
LOC: RADPROMAIN 11:53
PROVIDERS: ATTEND Internal Medicine Gastroenterology
DX: R18.8 Other ascites (principal)
CPT/HCPCS: 82565; 85049; 85610; 96365; 36415; 49083; P9047

== ENCOUNTER 2016-08-24 09:10 | Day surgery (SDC) | payer OTHER ==
[2016-08-24 09:46] VITALS: RESP 16; TEMP 97.3
[2016-08-24 09:48] LABS: Mean Platelet Volume 7.1
[2016-08-24 09:52] LABS: Non-African American GFR(MDRD) >60 (>60 ml/min/1.73 sqM)
[2016-08-24 09:57] LABS: INR 1.2 (<1.1); Prothrombin Time 12.2 sec (9.0-12.0)
[2016-08-24] MEDS: ALBUMIN HUMAN 25% 50 ML in EMPTY BAG 1 BAG IVPB SCH ×4 (10:23→11:13)
--- NOTE | 2016-08-24 11:40 | US ---
EXAMINATION TYPE: US paracentesis abd w/image DATE OF EXAM: 08/24/2016 CLINICAL HISTORY: Ascites The procedure was discussed with the patient. The risks, complications, benefits, and alternatives we re discussed and any questions were answered. Informed consent was obtained. The patient was placed s upine on the ultrasound table and prepped and draped in the usual sterile fashion. All elements of maximal barrier technique were utilized. Under ultrasound guidance, access into the right lower quadrant was obtained, via the paracentesis catheter system and direct ultrasound guidanc e. Approximately 7.3 liters of straw-colored fluid was removed. The patient was stable throughout the pr ocedure and remained stable upon discharge from Department of Radiology. IMPRESSION: Successful therapeutic paracentesis under ultrasound guidance.
[2016-08-24 12:08] VITALS: BP 121/71; PULSE 77
== END 2016-08-24 11:55 | disposition home or self-care (01) ==
LOC: RADPROMAIN 09:10
PROVIDERS: ATTEND Internal Medicine Gastroenterology
DX: R18.8 Other ascites (principal); K74.60 Unspecified cirrhosis of liver
CPT/HCPCS: 82565; 85049; 85610; 96365; 36415; 49083; P9047

== ENCOUNTER 2016-08-31 09:13 | Day surgery (SDC) | payer OTHER ==
[2016-08-31 09:28] VITALS: TEMP 97.7
[2016-08-31 09:41] LABS: Mean Platelet Volume 8.2
[2016-08-31 09:50] LABS: INR 1.2 (<1.2); Prothrombin Time 12.1 sec (9.0-12.0)
[2016-08-31 09:51] LABS: Non-African American GFR(MDRD) >60 (>60 ml/min/1.73 sqM)
[2016-08-31 10:15] VITALS: RESP 16
[2016-08-31] MEDS: ALBUMIN HUMAN 25% 50 ML in EMPTY BAG 1 BAG IVPB SCH ×3 (10:37→11:02)
[2016-08-31 10:46] VITALS: PULSE 69
[2016-08-31 11:18] VITALS: BP 138/72
--- NOTE | 2016-08-31 12:48 | US ---
Therapeutic paracentesis. DATE OF EXAM: 08/31/2016 CLINICAL HISTORY: Ascites The procedure was discussed with the patient. The risks, complications, benefits, and alternatives we re discussed and any questions were answered. Informed consent was obtained. The patient was placed s upine on the ultrasound table and prepped and draped in the usual sterile fashion. All elements of maximal barrier technique were utilized. Under ultrasound guidance, access into the right lower quadrant was obtained, via the paracentesis catheter system and direct ultrasound guidanc e. Approximately 7 liters of straw-colored fluid was removed. The patient was stable throughout the proc edure and remained stable upon discharge from Department of Radiology. IMPRESSION: Successful therapeutic paracentesis under ultrasound guidance.
== END 2016-08-31 11:37 | disposition home or self-care (01) ==
LOC: RADPROMAIN 09:13
PROVIDERS: ATTEND Internal Medicine Gastroenterology
DX: R18.8 Other ascites (principal); K74.3 Primary biliary cirrhosis
CPT/HCPCS: 82565; 85049; 85610; 96365; 49083; P9047

== ENCOUNTER 2016-09-07 09:04 | Day surgery (SDC) | payer OTHER ==
[2016-09-07 09:28] VITALS: RESP 14; TEMP 97.8
[2016-09-07 09:35] LABS: Mean Platelet Volume 8.1
[2016-09-07 09:37] LABS: INR 1.2 (<1.2); Prothrombin Time 12.1 sec (9.0-12.0)
[2016-09-07] MEDS: ALBUMIN HUMAN 25% 50 ML in EMPTY BAG 1 BAG IVPB SCH ×3 (10:39→11:46)
[2016-09-07 12:12] VITALS: BP 116/65; PULSE 71
[2016-09-07] MEDS ORDERED: ALBUMIN HUMAN 25% 50 ML in EMPTY BAG 1 BAG IVPB ONE (12:15)
--- NOTE | 2016-09-07 14:20 | US ---
EXAMINATION TYPE: US paracentesis abd w/image DATE OF EXAM: 09/07/2016 COMPARISON: NONE HISTORY: Ascites. PROCEDURE: Maximal barrier technique was utilized. The skin overlying a suitable pocket of fluid was localized with ultrasound and the overlying skin was prepped and draped. Ultrasound was utilized with sterile technique. Lidocaine was used for local anesthesia and a skin soren made with a scalpel. Catheter was advanced under direct ultrasound guidance into a suitable pocket of fluid and approximately 8.3 liter s of serous fluid were removed. Catheter was withdrawn and hemostasis achieved. There is no immedia te complication; the patient is discharged in stable condition. IMPRESSION: STATUS POST ULTRASOUND GUIDED PARACENTESIS FOR PALLIATION OF ASCITES. THIS PROCEDURE WA S PERFORMED BY THE UNDERSIGNED.
== END 2016-09-07 12:30 | disposition home or self-care (01) ==
LOC: RADPROMAIN 09:04
PROVIDERS: ATTEND Internal Medicine Gastroenterology
DX: K74.60 Unspecified cirrhosis of liver (principal); R18.8 Other ascites; K74.3 Primary biliary cirrhosis
CPT/HCPCS: 85049; 85610; 96365; 49083; P9047

== ENCOUNTER 2016-09-14 08:53 | Day surgery (SDC) | payer OTHER ==
[2016-09-14 09:20] VITALS: RESP 20; TEMP 97.7
[2016-09-14 09:25] LABS: Mean Platelet Volume 7.1
[2016-09-14 09:29] LABS: INR 1.2 (<1.2); Prothrombin Time 12.2 sec (9.0-12.0)
[2016-09-14 09:34] LABS: Non-African American GFR(MDRD) >60 (>60 ml/min/1.73 sqM)
[2016-09-14] MEDS: ALBUMIN HUMAN 25% 50 ML in EMPTY BAG 1 BAG IVPB SCH ×4 (10:26→11:45)
[2016-09-14 11:43] VITALS: BP 127/63; PULSE 69
--- NOTE | 2016-09-14 11:58 | US ---
EXAMINATION TYPE: US paracentesis abd w/image DATE OF EXAM: 09/14/2016 COMPARISON: NONE HISTORY: Ascites. PROCEDURE: Maximal barrier technique was utilized. The skin overlying a suitable pocket of fluid was localized with ultrasound and the overlying skin was prepped and draped. Ultrasound was utilized with sterile technique. Lidocaine was used for local anesthesia and a skin soren made with a scalpel. Catheter was advanced under direct ultrasound guidance into a suitable pocket of fluid and approximately 7.2 liter s of serous fluid were removed. Catheter was withdrawn and hemostasis achieved. There is no immedia te complication; the patient is discharged in stable condition. IMPRESSION: STATUS POST ULTRASOUND GUIDED PARACENTESIS FOR PALLIATION OF ASCITES. THIS PROCEDURE WA S PERFORMED BY THE UNDERSIGNED.
== END 2016-09-14 11:55 | disposition home or self-care (01) ==
LOC: RADPROMAIN 08:53
PROVIDERS: ATTEND Internal Medicine Gastroenterology
DX: R18.8 Other ascites (principal)
CPT/HCPCS: 82565; 85049; 85610; 96365; 36415; 49083; P9047

== ENCOUNTER 2016-09-21 09:10 | Day surgery (SDC) | payer OTHER ==
[2016-09-21 09:32] LABS: Mean Platelet Volume 7.6
[2016-09-21 09:38] LABS: INR 1.2 (<1.2); Prothrombin Time 11.9 sec (9.0-12.0)
[2016-09-21 09:41] VITALS: RESP 20; TEMP 97.7
[2016-09-21 09:44] LABS: Non-African American GFR(MDRD) >60 (>60 ml/min/1.73 sqM)
[2016-09-21] MEDS: ALBUMIN HUMAN 25% 50 ML in EMPTY BAG 1 BAG IVPB SCH ×4 (10:32→11:20)
[2016-09-21 11:34] VITALS: BP 116/70; PULSE 69
--- NOTE | 2016-09-21 12:06 | US ---
Therapeutic paracentesis. DATE OF EXAM: 09/21/2016 CLINICAL HISTORY: Ascites The procedure was discussed with the patient. The risks, complications, benefits, and alternatives we re discussed and any questions were answered. Informed consent was obtained. The patient was placed s upine on the ultrasound table and prepped and draped in the usual sterile fashion. All elements of maximal barrier technique were utilized. Under ultrasound guidance, access into the right lower quadrant was obtained, via the paracentesis catheter system and direct ultrasound guidanc e. Approximately 7.15 liters of straw-colored fluid was removed. The patient was stable throughout the p rocedure and remained stable upon discharge from Department of Radiology. IMPRESSION: Successful therapeutic paracentesis under ultrasound guidance.
== END 2016-09-21 11:50 | disposition home or self-care (01) ==
LOC: RADPROMAIN 09:10
PROVIDERS: ATTEND Internal Medicine Gastroenterology
DX: K74.3 Primary biliary cirrhosis (principal); R18.8 Other ascites; K74.60 Unspecified cirrhosis of liver
CPT/HCPCS: 82565; 85049; 85610; 96365; 36415; 49083; P9047

== ENCOUNTER 2016-09-28 11:40 | Day surgery (SDC) | payer OTHER ==
[2016-09-28 12:34] LABS: Mean Platelet Volume 7.2
[2016-09-28 12:37] VITALS: PULSE 68; RESP 14; TEMP 97.9
[2016-09-28 12:40] LABS: INR 1.2 (<1.2); Prothrombin Time 11.5 sec (9.0-12.0)
[2016-09-28 12:43] LABS: Non-African American GFR(MDRD) >60 (>60 ml/min/1.73 sqM)
[2016-09-28] MEDS: ALBUMIN HUMAN 25% 50 ML in EMPTY BAG 1 BAG IVPB SCH ×3 (13:42→14:24)
[2016-09-28 14:38] VITALS: BP 140/66
--- NOTE | 2016-09-28 15:28 | US ---
EXAMINATION TYPE: US paracentesis abd w/image DATE OF EXAM: 09/28/2016 COMPARISON: NONE HISTORY: Ascites. PROCEDURE: Maximal barrier technique was utilized. The skin overlying a suitable pocket of fluid was localized with ultrasound and the overlying skin was prepped and draped. Ultrasound was utilized with sterile technique. Lidocaine was used for local anesthesia and a skin soren made with a scalpel. Catheter was advanced under direct ultrasound guidance into a suitable pocket of fluid and approximately 7.24 lite rs of serous fluid were removed. Catheter was withdrawn and hemostasis achieved. There is no immedi ate complication; the patient is discharged in stable condition. IMPRESSION: STATUS POST ULTRASOUND GUIDED PARACENTESIS FOR PALLIATION OF ASCITES. THIS PROCEDURE WA S PERFORMED BY THE UNDERSIGNED.
== END 2016-09-28 14:55 | disposition home or self-care (01) ==
LOC: RADPROMAIN 11:40
PROVIDERS: ATTEND Internal Medicine Gastroenterology
DX: R18.8 Other ascites (principal)
CPT/HCPCS: 82565; 85049; 85610; 96365; 49083; P9047

== ENCOUNTER 2016-10-05 11:50 | Day surgery (SDC) | payer OTHER ==
[2016-10-05 12:18] VITALS: TEMP 97.4
[2016-10-05 12:33] LABS: Mean Platelet Volume 8.1
[2016-10-05 12:42] LABS: Non-African American GFR(MDRD) >60 (>60 ml/min/1.73 sqM)
[2016-10-05 12:58] LABS: INR 1.2 (<1.2); Prothrombin Time 11.9 sec (9.0-12.0)
[2016-10-05 13:12] VITALS: RESP 16
[2016-10-05] MEDS: ALBUMIN HUMAN 25% 50 ML in EMPTY BAG 1 BAG IVPB SCH ×3 (13:38→14:02)
[2016-10-05 14:35] VITALS: BP 121/55; PULSE 77
--- NOTE | 2016-10-05 14:51 | US ---
Therapeutic paracentesis. DATE OF EXAM: 10/05/2016 CLINICAL HISTORY: Ascites The procedure was discussed with the patient. The risks, complications, benefits, and alternatives we re discussed and any questions were answered. Informed consent was obtained. The patient was placed s upine on the ultrasound table and prepped and draped in the usual sterile fashion. All elements of maximal barrier technique were utilized. Under ultrasound guidance, access into the left lower quadrant was obtained, via the paracentesis catheter system and direct ultrasound guidance . Approximately 6.5 liters of straw-colored fluid was removed. The patient was stable throughout the pr ocedure and remained stable upon discharge from Department of Radiology. IMPRESSION: Successful therapeutic paracentesis under ultrasound guidance.
== END 2016-10-05 14:46 | disposition home or self-care (01) ==
LOC: RADPROMAIN 11:50
PROVIDERS: ATTEND Internal Medicine Gastroenterology
DX: R18.8 Other ascites (principal)
CPT/HCPCS: 82565; 85049; 85610; 49083; P9047

== ENCOUNTER 2016-10-12 12:10 | Day surgery (SDC) | payer OTHER ==
[2016-10-12 12:46] VITALS: RESP 14; TEMP 97.6
[2016-10-12 12:46] LABS: Mean Platelet Volume 7.1
[2016-10-12 12:55] LABS: Non-African American GFR(MDRD) >60 (>60 ml/min/1.73 sqM)
[2016-10-12 12:57] LABS: INR 1.2 (<1.2); Prothrombin Time 11.9 sec (9.0-12.0)
[2016-10-12] MEDS: ALBUMIN HUMAN 25% 50 ML in EMPTY BAG 1 BAG IVPB SCH ×3 (13:49→14:16)
[2016-10-12 14:40] VITALS: BP 111/72; PULSE 77
--- NOTE | 2016-10-12 15:22 | US ---
Therapeutic paracentesis. DATE OF EXAM: 10/12/2016 CLINICAL HISTORY: Ascites The procedure was discussed with the patient. The risks, complications, benefits, and alternatives we re discussed and any questions were answered. Informed consent was obtained. The patient was placed s upine on the ultrasound table and prepped and draped in the usual sterile fashion. All elements of maximal barrier technique were utilized. Under ultrasound guidance, access into the right lower quadrant was obtained, via the paracentesis catheter system and direct ultrasound guidanc e. Approximately 6.75 liters of straw-colored fluid was removed. The patient was stable throughout the p rocedure and remained stable upon discharge from Department of Radiology. IMPRESSION: Successful therapeutic paracentesis under ultrasound guidance.
== END 2016-10-12 14:55 | disposition home or self-care (01) ==
LOC: RADPROMAIN 12:10
PROVIDERS: ATTEND Internal Medicine Gastroenterology
DX: R18.8 Other ascites (principal); K74.3 Primary biliary cirrhosis
CPT/HCPCS: 82565; 85049; 85610; 96365; 49083; P9047

== ENCOUNTER 2016-10-19 12:19 | Day surgery (SDC) | payer OTHER ==
[2016-10-19 13:30] LABS: INR 1.2 (<1.2); Prothrombin Time 11.7 sec (9.0-12.0)
[2016-10-19 13:38] VITALS: RESP 16; TEMP 98
[2016-10-19] MEDS: ALBUMIN HUMAN 25% 50 ML in EMPTY BAG 1 BAG IVPB SCH ×3 (13:47→14:19)
[2016-10-19 13:51] LABS: Non-African American GFR(MDRD) >60 (>60 ml/min/1.73 sqM)
[2016-10-19 15:10] VITALS: BP 132/78; PULSE 78
--- NOTE | 2016-10-19 15:14 | US ---
Therapeutic paracentesis. DATE OF EXAM: 10/19/2016 CLINICAL HISTORY: Ascites The procedure was discussed with the patient. The risks, complications, benefits, and alternatives we re discussed and any questions were answered. Informed consent was obtained. The patient was placed s upine on the ultrasound table and prepped and draped in the usual sterile fashion. All elements of maximal barrier technique were utilized. Under ultrasound guidance, access into the right lower quadrant was obtained, via the paracentesis catheter system and direct ultrasound guidanc e. Approximately 7 liters of straw-colored fluid was removed. The patient was stable throughout the proc edure and remained stable upon discharge from Department of Radiology. IMPRESSION: Successful therapeutic paracentesis under ultrasound guidance.
== END 2016-10-19 15:25 | disposition home or self-care (01) ==
LOC: RADPROMAIN 12:19
PROVIDERS: ATTEND Internal Medicine Gastroenterology
DX: R18.8 Other ascites (principal)
CPT/HCPCS: 82565; 85049; 85610; 96365; 36415; 49083; P9047

== ENCOUNTER 2016-10-26 11:55 | Day surgery (SDC) | payer OTHER ==
[2016-10-26 12:31] VITALS: RESP 14; TEMP 98.2
[2016-10-26 12:35] LABS: Non-African American GFR(MDRD) >60 (>60 ml/min/1.73 sqM)
[2016-10-26 12:45] LABS: INR 1.2 (<1.2)
[2016-10-26] MEDS: ALBUMIN HUMAN 25% 50 ML in EMPTY BAG 1 BAG IVPB SCH ×4 (13:14→14:10)
[2016-10-26 14:18] VITALS: PULSE 72
[2016-10-26 14:23] VITALS: BP 126/72
--- NOTE | 2016-10-26 15:45 | US ---
Therapeutic paracentesis. DATE OF EXAM: 10/26/2016 CLINICAL HISTORY: Ascites The procedure was discussed with the patient. The risks, complications, benefits, and alternatives we re discussed and any questions were answered. Informed consent was obtained. The patient was placed s upine on the ultrasound table and prepped and draped in the usual sterile fashion. All elements of maximal barrier technique were utilized. Under ultrasound guidance, access into the left lower quadrant was obtained, via the paracentesis catheter system and direct ultrasound guidance . Approximately 8.2 liters of straw-colored fluid was removed. The patient was stable throughout the pr ocedure and remained stable upon discharge from Department of Radiology. IMPRESSION: Successful therapeutic paracentesis under ultrasound guidance.
== END 2016-10-26 14:45 | disposition home or self-care (01) ==
LOC: RADPROMAIN 11:55
PROVIDERS: ATTEND Internal Medicine Gastroenterology
DX: R18.8 Other ascites (principal); K74.60 Unspecified cirrhosis of liver; K74.3 Primary biliary cirrhosis
CPT/HCPCS: 82565; 85049; 85610; 96365; 49083; P9047

== ENCOUNTER 2016-11-02 09:15 | Day surgery (SDC) | payer OTHER ==
[2016-11-02 09:35] VITALS: RESP 20; TEMP 97.9
[2016-11-02 09:39] LABS: Mean Platelet Volume 7.4
[2016-11-02 09:43] LABS: INR 1.2 (<1.2); Prothrombin Time 11.7 sec (9.0-12.0)
[2016-11-02 09:48] LABS: Non-African American GFR(MDRD) >60 (>60 ml/min/1.73 sqM)
[2016-11-02] MEDS: ALBUMIN HUMAN 25% 50 ML in EMPTY BAG 1 BAG IVPB SCH ×4 (10:36→11:26)
[2016-11-02 11:31] VITALS: BP 122/65; PULSE 61
--- NOTE | 2016-11-02 12:01 | US ---
Therapeutic paracentesis. DATE OF EXAM: 11/02/2016 CLINICAL HISTORY: Ascites The procedure was discussed with the patient. The risks, complications, benefits, and alternatives we re discussed and any questions were answered. Informed consent was obtained. The patient was placed s upine on the ultrasound table and prepped and draped in the usual sterile fashion. All elements of maximal barrier technique were utilized. Under ultrasound guidance, access into the right lower quadrant was obtained, via the paracentesis catheter system and direct ultrasound guidanc e. Approximately 7.9 liters of straw-colored fluid was removed. The patient was stable throughout the pr ocedure and remained stable upon discharge from Department of Radiology. IMPRESSION: Successful therapeutic paracentesis under ultrasound guidance.
== END 2016-11-02 11:50 | disposition home or self-care (01) ==
LOC: RADPROMAIN 09:15
PROVIDERS: ATTEND Internal Medicine Gastroenterology
DX: R18.8 Other ascites (principal); K74.60 Unspecified cirrhosis of liver; K74.3 Primary biliary cirrhosis
CPT/HCPCS: 82565; 85049; 85610; 96365; 36415; 49083; P9047

== ENCOUNTER 2016-11-09 11:50 | Day surgery (SDC) | payer OTHER ==
[2016-11-09 12:27] VITALS: RESP 14; TEMP 97.7
[2016-11-09 12:31] LABS: Mean Platelet Volume 7.2
[2016-11-09 12:43] LABS: Non-African American GFR(MDRD) >60 (>60 ml/min/1.73 sqM)
[2016-11-09 12:46] LABS: INR 1.2 (<1.2); Prothrombin Time 11.9 sec (9.0-12.0)
[2016-11-09] MEDS: ALBUMIN HUMAN 25% 50 ML in EMPTY BAG 1 BAG IVPB SCH ×4 (13:44→14:40)
[2016-11-09 14:20] VITALS: PULSE 67
[2016-11-09 14:34] VITALS: BP 128/70
--- NOTE | 2016-11-09 15:44 | US ---
Therapeutic paracentesis. DATE OF EXAM: 11/09/2016 CLINICAL HISTORY: Ascites The procedure was discussed with the patient. The risks, complications, benefits, and alternatives we re discussed and any questions were answered. Informed consent was obtained. The patient was placed s upine on the ultrasound table and prepped and draped in the usual sterile fashion. All elements of maximal barrier technique were utilized. Under ultrasound guidance, access into the right lower quadrant was obtained, via the paracentesis catheter system and direct ultrasound guidanc e. Approximately 6.3 liters of straw-colored fluid was removed. The patient was stable throughout the pr ocedure and remained stable upon discharge from Department of Radiology. IMPRESSION: Successful therapeutic paracentesis under ultrasound guidance.
== END 2016-11-09 14:45 | disposition home or self-care (01) ==
LOC: RADPROMAIN 11:50
PROVIDERS: ATTEND Internal Medicine Gastroenterology
DX: R18.8 Other ascites (principal); K74.60 Unspecified cirrhosis of liver; K74.3 Primary biliary cirrhosis
CPT/HCPCS: 82565; 85049; 85610; 96365; 49083; P9047

== ENCOUNTER 2016-11-16 09:17 | Day surgery (SDC) | payer OTHER ==
[2016-11-16 09:38] VITALS: RESP 20; TEMP 97.7
[2016-11-16 09:44] LABS: Mean Platelet Volume 7.2
[2016-11-16 09:48] LABS: Non-African American GFR(MDRD) >60 (>60 ml/min/1.73 sqM)
[2016-11-16 09:51] LABS: INR 1.2 (<1.2); Prothrombin Time 11.8 sec (9.0-12.0)
[2016-11-16] MEDS: ALBUMIN HUMAN 25% 50 ML in EMPTY BAG 1 BAG IVPB SCH ×4 (11:01→11:40)
[2016-11-16 11:39] VITALS: BP 130/78; PULSE 69
--- NOTE | 2016-11-16 12:44 | US ---
EXAMINATION TYPE: US paracentesis abd w/image DATE OF EXAM: 11/16/2016 COMPARISON: NONE HISTORY: Ascites. PROCEDURE: Maximal barrier technique was utilized. The skin overlying a suitable pocket of fluid was localized with ultrasound and the overlying skin was prepped and draped. Ultrasound was utilized with sterile technique. Lidocaine was used for local anesthesia and a skin soren made with a scalpel. Catheter was advanced under direct ultrasound guidance into a suitable pocket of fluid and approximately 7 liters of serous fluid were removed. Catheter was withdrawn and hemostasis achieved. There is no immediate complication; the patient is discharged in stable condition. IMPRESSION: STATUS POST ULTRASOUND GUIDED PARACENTESIS FOR PALLIATION OF ASCITES. THIS PROCEDURE WA S PERFORMED BY THE UNDERSIGNED.
== END 2016-11-16 11:55 | disposition home or self-care (01) ==
LOC: RADPROMAIN 09:17
PROVIDERS: ATTEND Internal Medicine Gastroenterology
DX: R18.8 Other ascites (principal)
CPT/HCPCS: 49083; 82565; 85049; 85610; 96365; 36415; P9047

== ENCOUNTER 2016-11-23 12:20 | Day surgery (SDC) | payer OTHER ==
[2016-11-23 13:03] LABS: Non-African American GFR(MDRD) >60 (>60 ml/min/1.73 sqM)
[2016-11-23 13:07] LABS: INR 1.1 (<1.2); Partial Thromboplastin Time 23.8 sec (22.0-30.0); Prothrombin Time 11.4 sec (9.0-12.0)
[2016-11-23 13:20] VITALS: TEMP 97.5
[2016-11-23] MEDS: ALBUMIN HUMAN 25% 50 ML in EMPTY BAG 1 BAG IVPB SCH ×4 (13:31→14:22)
[2016-11-23 13:44] VITALS: RESP 16
--- NOTE | 2016-11-23 14:51 | US ---
EXAMINATION TYPE: US paracentesis abd w/image DATE OF EXAM: 11/23/2016 COMPARISON: NONE HISTORY: Ascites. PROCEDURE: Maximal barrier technique was utilized. The skin overlying a suitable pocket of fluid was localized with ultrasound and the overlying skin was prepped and draped. Ultrasound was utilized with sterile technique. Lidocaine was used for local anesthesia and a skin soren made with a scalpel. Catheter was advanced under direct ultrasound guidance into a suitable pocket of fluid and approximately 7.3 liter s of serous fluid were removed. Catheter was withdrawn and hemostasis achieved. There is no immedia te complication; the patient is discharged in stable condition. IMPRESSION: STATUS POST ULTRASOUND GUIDED PARACENTESIS FOR PALLIATION OF ASCITES. THIS PROCEDURE WA S PERFORMED BY THE UNDERSIGNED.
[2016-11-23 15:16] VITALS: BP 129/76; PULSE 69
== END 2016-11-23 15:00 | disposition home or self-care (01) ==
LOC: RADPROMAIN 12:20
PROVIDERS: ATTEND Internal Medicine Gastroenterology
DX: R18.8 Other ascites (principal); K74.60 Unspecified cirrhosis of liver; K74.3 Primary biliary cirrhosis
CPT/HCPCS: 82565; 85049; 85610; 85730; 96365; 36415; 49083; P9047

== ENCOUNTER 2016-11-30 09:20 | Day surgery (SDC) | payer OTHER ==
[2016-11-30 09:59] LABS: Mean Platelet Volume 7.1
[2016-11-30 10:10] LABS: Non-African American GFR(MDRD) >60 (>60 ml/min/1.73 sqM)
[2016-11-30 10:11] LABS: INR 1.3 (<1.2); Partial Thromboplastin Time 25.9 sec (22.0-30.0); Prothrombin Time 12.4 sec (9.0-12.0)
[2016-11-30 10:38] VITALS: RESP 18; TEMP 97.6
[2016-11-30] MEDS: ALBUMIN HUMAN 25% 50 ML in EMPTY BAG 1 BAG IVPB SCH ×2 (10:47→11:05)
[2016-11-30 11:46] VITALS: BP 126/72; PULSE 70
--- NOTE | 2016-11-30 13:45 | US ---
Therapeutic paracentesis. DATE OF EXAM: 11/30/2016 CLINICAL HISTORY: Ascites The procedure was discussed with the patient. The risks, complications, benefits, and alternatives we re discussed and any questions were answered. Informed consent was obtained. The patient was placed s upine on the ultrasound table and prepped and draped in the usual sterile fashion. All elements of maximal barrier technique were utilized. Under ultrasound guidance, access into the right lower quadrant was obtained, via the paracentesis catheter system and direct ultrasound guidanc e. Approximately 5.2 liters of straw-colored fluid was removed. The patient was stable throughout the pr ocedure and remained stable upon discharge from Department of Radiology. IMPRESSION: Successful therapeutic paracentesis under ultrasound guidance.
== END 2016-11-30 12:00 | disposition home or self-care (01) ==
LOC: RADPROMAIN 09:20
PROVIDERS: ATTEND Internal Medicine Gastroenterology
DX: R18.8 Other ascites (principal); K74.3 Primary biliary cirrhosis
CPT/HCPCS: 82565; 85049; 85610; 85730; 96365; 36415; 49083; P9047